=== PATIENT | male | born 1980 | race Caucasian/White ===

== ENCOUNTER 2020-11-23 15:43 | Emergency (ER) | payer SELFPAY ==
[2020-11-23] VITALS (7 sets, daily range): BP systolic 160–178; BP diastolic 105–122; PULSE 67–109; RESP 14–19; TEMP 36.7; O2SAT 96–99; BMI 34.8
--- NOTE | 2020-11-23 16:46 | PC.NURSE ---
States he was feeling worse. Shooting pains across chest and into jaw
--- NOTE | 2020-11-23 17:43 | ECG_ITS ---
[facility] Test Date: 2020-11-23 Pat Name: Jim Harris Department: Room: Gender: Male Scale Clerk: : 1980 Requested By: Vern Valverde Order Number: [id number] Caryl MD: Shikha Fletcher M.D. Measurements Intervals [place] Rate: 101 P: 69 GA: 176 QRS: -72 QRSD: 103 T: 30 QT: 332 QTc: 430 Interpretive Statements SINUS TACHYCARDIA POSSIBLE RIGHT ATRIAL ENLARGEMENT [0.25mV P WAVE] POSSIBLE LEFT ATRIAL ENLARGEMENT [-0.1mV P WAVE IN V1/V2] INCOMPLETE RIGHT BUNDLE BRANCH BLOCK [90+ ms QRS DURATION, TERMINAL R IN V1/V2, 40+ ms S IN I/aVL/V4/V5/V6] LEFT ANTERIOR FASCICULAR BLOCK [QRS AXIS <= -45, QR IN I, RS IN II] POSSIBLE LEFT VENTRICULAR HYPERTROPHY [VOLTAGE CRITERIA PLUS LAE OR QRS WIDENING] No previous ECG available for comparison Electronically Signed On 11-23-2020 22:46:25 CDT by Shikha Fletcher M.D. [id number]
--- NOTE | 2020-11-23 17:43 | XRR_ITS ---
PROCEDURE INFORMATION: Exam: XR Chest Exam date and time: 11/23/2020 5:43 PM Age: 40 years old Clinical indication: Pain; Shortness of breath; Chest pressure; Patient HX: HX of copd; Additional info: Chest pain TECHNIQUE: Imaging protocol: XR of the chest. Views: 1 view. COMPARISON: No relevant prior studies available. FINDINGS: Lungs: Mild diffuse increase in vascularity throughout the lungs. Negative for focal airspace consolidation or lesion. Pleural spaces: Unremarkable. No pleural effusion. No pneumothorax. Heart/Mediastinum: Unremarkable. No cardiomegaly. Bones/joints: Unremarkable. XR/XR chest 1V portable [id number] IMPRESSION: 1. No focal lung disease. 2. Mildly prominent vasculature of uncertain significance.
--- NOTE | 2020-11-23 17:49 | ED_ITS ---
Documented by User: Vern Villalpando DO 11/24/20 16:45 HPI - Chest Pain General: Chief Complaint: Chest Pain Stated Complaint: Chest Pain/SOB Time Seen by Provider: 11/23/20 17:32 History of Present Illness: HPI narrative: 40-year-old male presents to the emergency room with complaint of chest discomfort. It was radiating up into his jaw a little earlier today he normally is on blood pressure medicines he misses his morning drinks several energy drinks. Before coming to the ER he went home and took his medicines that did seem to help some. Patient has a history of diabetes he is not previously had an angiogram or stress test that he can recall. He is feeling somewhat better now chest pain is mostly resolved. MD complaint: chest pain and chest heaviness Onset (ago): hour(s) Timing of current episode: episodic Onset: during rest Pain location: substernal Pain radiation: none Severity: mild Relieving factors: nothing Exacerbating factors: nothing Associated symptoms: Deny abdominal pain, diaphoresis, dyspnea, fever(s), leg edema, nausea, palpitations, sense of impending doom, syncope or vomiting Treatment prior to arrival: none Review of Systems Const: Denies: fever(s) or diaphoresis ENMT: Denies: throat pain, ear or mastoid pain, nasal discharge or nasal congestion Card: Denies: palpitations or syncope Resp: Denies: dyspnea GI: Denies: abdominal pain, nausea or vomiting : Denies: flank pain, dysuria, urinary frequency or urinary urgency Skin/Breast: Denies: rash or pruritus Physical Exam Const: COMMON NORMALS: no acute distress GENERAL APPEARANCE: cooperative and comfortable ORIENTATION/CONSCIOUSNESS: Yes awake, Yes oriented to person, Yes oriented to place and Yes oriented to time HENMT: COMMON NORMALS: normocephalic, atraumatic, hearing grossly normal bilaterally and external ears normal HEAD & SCALP: normocephalic and atraumatic EXTERNAL EAR: Yes external ears normal Neck/C-Spine: COMMON NORMALS: no JVD Resp: COMMON NORMALS: normal respiratory effort, No retractions, No use of accessory muscles and clear to auscultation bilaterally AUSCULTATION: clear to auscultation bilaterally Cardio: COMMON NORMALS: no JVD, regular rate, regular rhythm and No murmurs present (Cardio) RATE: regular rate RHYTHM: regular rhythm GI: COMMON NORMALS: Soft to palpation and No hepatosplenomegaly present AUSCULTATION: Yes normoactive bowel sounds PALPATION: Yes Soft to palpation, No Tenderness to palpation present (GI), No Guarding due to palpation present (GI) and Yes No hepatosplenomegaly present Extremity: COMMON NORMALS: normal to inspection, capillary refill normal, no clubbing, cyanosis or edema, no calf tenderness and no pedal edema Neuro: SENSORIUM/ORIENTATION: Yes oriented to person, Yes oriented to place and Yes oriented to time Skin: COMMON NORMALS: no rashes or lesions noted GENERAL SKIN EXAM: no rashes or lesions noted Course Vital Signs: Vital signs: Vital Signs Temperature 98.0 F 11/23/20 21: Pulse Rate 70 11/23/20 21: Respiratory Rate 19 H 11/23/20 21: Blood Pressure 162/106 11/23/20 21: Pulse Oximetry 98 11/23/20 21:21 MDM - Chest Pain MDM Narrative: Medical decision making narrative: Care turned over to Dr. Rosenthal at change of shift see his note for final diagnosis and disposition. Lab Data: Labs: Lab Results 11/23/20 11/23/20 11/23/20 Range/Units 18:28 18:31 18:31 WBC 11.4 H (4.0-10.0) 10^3/ uL RBC 5.15 (4.1-5.3) 10^6/u L Hgb 15.7 (11.7-16.6) g/dL Hct 46.4 (42.0-52.0) % MCV 90.1 (80-94) fL MCH 30.5 (28.0-34.0) pg MCHC 33.8 (30.0-36.0) g/dL RDW 13.5 (12.1-15.1) % Plt Count 262 (130-400) 10^3/c mm MPV 9.9 (7.4-10.4) fL Neut % (Auto) 57.8 % Lymph % (Auto) 29.9 % [place] % (Auto) 9.0 % Eos % (Auto) 2.0 % Baso % (Auto) 0.9 % Neut # (Auto) 6.60 (1.8-7.7) 10^3/u L Lymph # (Auto) 3.4 (0.8-4.8) 10^3/u L [place] # (Auto) 1.0 H (0.2-0.9) 10^3/u L Eos # (Auto) 0.2 (0.0-0.8) 10^3/u L Baso # (Auto) 0.1 (0.0-0.1) 10^3/u L Nucleated RBC % (a uto) 0 % Nucleated RBCs # 0.0 /100WBC Sodium Cancelled Potassium Cancelled Chloride Cancelled Carbon Dioxide Cancelled Anion Gap Cancelled BUN Cancelled Creatinine Cancelled GFR Calculation Cancelled Glucose Cancelled POC Glucose 127 H (70-110) mg/dL Calculated Osmolal ity Cancelled Calcium Cancelled Total Bilirubin Cancelled AST Cancelled ALT Cancelled Alkaline Phosphata se Cancelled Troponin T Baselin e Total Protein Cancelled Albumin Cancelled Globulin Cancelled 11/23/20 11/23/20 11/23/20 Range/Units 18:31 19:33 19:33 WBC (4.0-10.0) 10^3/ uL RBC (4.1-5.3) 10^6/u L Hgb (11.7-16.6) g/dL Hct (42.0-52.0) % MCV (80-94) fL MCH (28.0-34.0) pg MCHC (30.0-36.0) g/dL RDW (12.1-15.1) % Plt Count (130-400) 10^3/c mm MPV (7.4-10.4) fL Neut % (Auto) % Lymph % (Auto) % [place] % (Auto) % Eos % (Auto) % Baso % (Auto) % Neut # (Auto) (1.8-7.7) 10^3/u L Lymph # (Auto) (0.8-4.8) 10^3/u L [place] # (Auto) (0.2-0.9) 10^3/u L Eos # (Auto) (0.0-0.8) 10^3/u L Baso # (Auto) (0.0-0.1) 10^3/u L Nucleated RBC % (a uto) % Nucleated RBCs # /100WBC Sodium Cancelled Potassium Cancelled Chloride Cancelled Carbon Dioxide Cancelled Anion Gap Cancelled BUN Cancelled Creatinine Cancelled GFR Calculation Cancelled Glucose Cancelled POC Glucose (70-110) mg/dL Calculated Osmolal ity Cancelled Calcium Cancelled Total Bilirubin Cancelled AST Cancelled ALT Cancelled Alkaline Phosphata se Cancelled Troponin T Baselin e Cancelled Cancelled Total Protein Cancelled Albumin Cancelled Globulin Cancelled 11/23/20 11/23/20 Range/Units 20:11 20:11 WBC (4.0-10.0) 10^3/ uL RBC (4.1-5.3) 10^6/u L Hgb (11.7-16.6) g/dL Hct (42.0-52.0) % MCV (80-94) fL MCH (28.0-34.0) pg MCHC (30.0-36.0) g/dL RDW (12.1-15.1) % Plt Count (130-400) 10^3/c mm MPV (7.4-10.4) fL Neut % (Auto) % Lymph % (Auto) % [place] % (Auto) % Eos % (Auto) % Baso % (Auto) % Neut # (Auto) (1.8-7.7) 10^3/u L Lymph # (Auto) (0.8-4.8) 10^3/u L [place] # (Auto) (0.2-0.9) 10^3/u L Eos # (Auto) (0.0-0.8) 10^3/u L Baso # (Auto) (0.0-0.1) 10^3/u L Nucleated RBC % (a uto) % Nucleated RBCs # /100WBC Sodium 138 Potassium 4.1 Chloride 101 Carbon Dioxide 25 Anion Gap 16.1 BUN 9 Creatinine 0.7 GFR Calculation 124.9 Glucose 102 POC Glucose (70-110) mg/dL Calculated Osmolal ity 285 Calcium 9.3 Total Bilirubin 0.3 AST 19 ALT 29 Alkaline Phosphata se 57 Troponin T Baselin e 22 H Total Protein 7.1 Albumin 4.6 Globulin 2.5 Discharge Plan Discharge Patient Disposition: Home Clinical Impression: Atypical chest pain, Hypertension, Noncompliance with medication regimen, Current smoker Condition: Stable Prescriptions: No Action metformin 500 mg tablet 500 mg PO BID RF: 0 lisinopril 5 mg tablet 5 mg PO DAILY RF: 0 lovastatin 20 mg tablet 20 mg PO DAILY RF: 0 Discharge Orders: Discharge ED (Routine); Ordered 11/23/20 Ordered By: Cooper Rosenthal Referrals: Iain Herrera NP [Primary Care Provider] - Discharge Diet: Advance as tolerated Discharge Activity: Resume usual activity Patient Instructions: Opioid Safety Activity Restrictions/Additional Instructions: Continue all home medications for blood pressure. Maintain compliance with your prescriptions. Avoid smoking avoid excess caffeine. Follow-up with primary care physician in 2 to 3 days. Return to the emergency department symptoms fail to improve or worsen. Coding Level of Care Code ED Letter Sorting Machine Operator for Chg Fwd Exam Comprehensive Documented by User: Cooper Rosenthal MD 11/23/20 21:06 HPI - Chest Pain General: Chief Complaint: Chest Pain Stated Complaint: Chest Pain/SOB Time Seen by Provider: 11/23/20 17:32 Course Reevaluation(s): Reevaluation #1: Negative evaluation in the emergency department for any acute findings. Patient does not want to wait on a 2-hour troponin. Patient states he is pain-free and believes it is related to him not taking his blood pressure medicines regularly. Blood pressure is improved down to 162/106. Sinus rhythm heart rate of 79. Patient states he has plenty of prescription medications at home. We did discuss liquid options. Patient will be discharged home per his request. Patient is to continue all home medications patient should avoid smoking or drinking with any significant mild caffeine. Patient is to follow-up primary care physician in 2 to 3 days. Patient is discharged per his request with pain Time: 21:04 Vital Signs: Vital signs: Vital Signs Temperature 98.0 F 11/23/20 21:21 Pulse Rate 70 11/23/20 21:21 Respiratory Rate 19 H 11/23/20 21:21 Blood Pressure 162/106 11/23/20 21:21 Pulse Oximetry 98 11/23/20 21:21 MDM - Chest Pain MDM Narrative: Medical decision making narrative: Negative evaluation in the emergency department for any acute findings. Patient does not want to wait on a 2-hour troponin. Patient states he is pain-free and believes it is related to him not taking his blood pressure medicines regularly. Blood pressure is improved down to 162/106. Sinus rhythm heart rate of 79. Patient states he has plenty of prescription medications at home. We did discuss liquid options. Patient will be discharged home per his request. Patient is to continue all home medications patient should avoid smoking or drinking with any significant mild caffeine. Patient is to follow-up primary care physician in 2 to 3 days. Patient is discharged per his request with pain Lab Data: Labs: Lab Results 11/23/20 11/23/20 11/23/20 Range/Units 18:28 18:31 18:31 WBC 11.4 H (4.0-10.0) 10^3/ uL RBC 5.15 (4.1-5.3) 10^6/u L Hgb 15.7 (11.7-16.6) g/dL Hct 46.4 (42.0-52.0) % MCV 90.1 (80-94) fL MCH 30.5 (28.0-34.0) pg MCHC 33.8 (30.0-36.0) g/dL RDW 13.5 (12.1-15.1) % Plt Count 262 (130-400) 10^3/c mm MPV 9.9 (7.4-10.4) fL Neut % (Auto) 57.8 % Lymph % (Auto) 29.9 % [place] % (Auto) 9.0 % Eos % (Auto) 2.0 % Baso % (Auto) 0.9 % Neut # (Auto) 6.60 (1.8-7.7) 10^3/u L Lymph # (Auto) 3.4 (0.8-4.8) 10^3/u L [place] # (Auto) 1.0 H (0.2-0.9) 10^3/u L Eos # (Auto) 0.2 (0.0-0.8) 10^3/u L Baso # (Auto) 0.1 (0.0-0.1) 10^3/u L Nucleated RBC % (a uto) 0 % Nucleated RBCs # 0.0 /100WBC Sodium Cancelled Potassium Cancelled Chloride Cancelled Carbon Dioxide Cancelled Anion Gap Cancelled BUN Cancelled Creatinine Cancelled GFR Calculation Cancelled Glucose Cancelled POC Glucose 127 H (70-110) mg/dL Calculated Osmolal ity Cancelled Calcium Cancelled Total Bilirubin Cancelled AST Cancelled ALT Cancelled Alkaline Phosphata se Cancelled Troponin T Baselin e Total Protein Cancelled Albumin Cancelled Globulin Cancelled 11/23/20 11/23/20 11/23/20 Range/Units 18:31 19:33 19:33 WBC (4.0-10.0) 10^3/ uL RBC (4.1-5.3) 10^6/u L Hgb (11.7-16.6) g/dL Hct (42.0-52.0) % MCV (80-94) fL MCH (28.0-34.0) pg MCHC (30.0-36.0) g/dL RDW (12.1-15.1) % Plt Count (130-400) 10^3/c mm MPV (7.4-10.4) fL Neut % (Auto) % Lymph % (Auto) % [place] % (Auto) % Eos % (Auto) % Baso % (Auto) % Neut # (Auto) (1.8-7.7) 10^3/u L Lymph # (Auto) (0.8-4.8) 10^3/u L [place] # (Auto) (0.2-0.9) 10^3/u L Eos # (Auto) (0.0-0.8) 10^3/u L Baso # (Auto) (0.0-0.1) 10^3/u L Nucleated RBC % (a uto) % Nucleated RBCs # /100WBC Sodium Cancelled Potassium Cancelled Chloride Cancelled Carbon Dioxide Cancelled Anion Gap Cancelled BUN Cancelled Creatinine Cancelled GFR Calculation Cancelled Glucose Cancelled POC Glucose (70-110) mg/dL Calculated Osmolal ity Cancelled Calcium Cancelled Total Bilirubin Cancelled AST Cancelled ALT Cancelled Alkaline Phosphata se Cancelled Troponin T Baselin e Cancelled Cancelled Total Protein Cancelled Albumin Cancelled Globulin Cancelled 11/23/20 11/23/20 Range/Units 20:11 20:11 WBC (4.0-10.0) 10^3/ uL RBC (4.1-5.3) 10^6/u L Hgb (11.7-16.6) g/dL Hct (42.0-52.0) % MCV (80-94) fL MCH (28.0-34.0) pg MCHC (30.0-36.0) g/dL RDW (12.1-15.1) % Plt Count (130-400) 10^3/c mm MPV (7.4-10.4) fL Neut % (Auto) % Lymph % (Auto) % [place] % (Auto) % Eos % (Auto) % Baso % (Auto) % Neut # (Auto) (1.8-7.7) 10^3/u L Lymph # (Auto) (0.8-4.8) 10^3/u L [place] # (Auto) (0.2-0.9) 10^3/u L Eos # (Auto) (0.0-0.8) 10^3/u L Baso # (Auto) (0.0-0.1) 10^3/u L Nucleated RBC % (a uto) % Nucleated RBCs # /100WBC Sodium 138 Potassium 4.1 Chloride 101 Carbon Dioxide 25 Anion Gap 16.1 BUN 9 Creatinine 0.7 GFR Calculation 124.9 Glucose 102 POC Glucose (70-110) mg/dL Calculated Osmolal ity 285 Calcium 9.3 Total Bilirubin 0.3 AST 19 ALT 29 Alkaline Phosphata se 57 Troponin T Baselin e 22 H Total Protein 7.1 Albumin 4.6 Globulin 2.5 Imaging Data^: CXR: Attestation: I personally reviewed and interpreted this imaging study as follows: Radiologist's impression: IMPRESSION: 1. No focal lung disease. 2. Mildly prominent vasculature of uncertain significance. Discharge Plan Discharge Patient Disposition: Home Clinical Impression: Atypical chest pain, Hypertension, Noncompliance with medication regimen, Current smoker Condition: Stable Prescriptions: No Action metformin 500 mg tablet 500 mg PO BID RF: 0 lisinopril 5 mg tablet 5 mg PO DAILY RF: 0 lovastatin 20 mg tablet 20 mg PO DAILY RF: 0 Discharge Orders: Discharge ED (Routine); Ordered 11/23/20 Ordered By: Cooper Rosenthal Referrals: Iain Herrera NP [Primary Care Provider] - Discharge Diet: Advance as tolerated Discharge Activity: Resume usual activity Patient Instructions: Opioid Safety Activity Restrictions/Additional Instructions: Continue all home medications for blood pressure. Maintain compliance with your prescriptions. Avoid smoking avoid excess caffeine. Follow-up with primary care physician in 2 to 3 days. Return to the emergency department symptoms fail to improve or worsen. Coding Level of Care Code ED Letter Sorting Machine Operator for Daryl Fwd Exam Comprehensive
[2020-11-23 18:32] LABS: Glucose Point of Care 127 mg/dL (70-110)
[2020-11-23 18:50] LABS: Basophils # 0.1 10^3/uL (0.0-0.1); Basophils % 0.9 %; Eosinophils # 0.2 10^3/uL (0.0-0.8); Hematocrit 46.4 % (42.0-52.0); Hemoglobin 15.7 g/dL (11.7-16.6); Lymphocytes # 3.4 10^3/uL (0.8-4.8); Lymphocytes % 29.9 %; Mean Corpuscular HGB Conc 33.8 g/dL (30.0-36.0); Mean Corpuscular Hemoglobin 30.5 pg (28.0-34.0); Mean Corpuscular Volume 90.1 fL (80-94); Mean Platelet Volume 9.9 fL (7.4-10.4); Neutrophils % 57.8 %; Nucleated Red Blood Cells % 0 %; Platelet Count 262 10^3/cmm (130-400); Red Blood Count 5.15 10^6/uL (4.1-5.3); Red Cell Distribution Width 13.5 % (12.1-15.1); White Blood Count 11.4 10^3/uL (4.0-10.0)
[2020-11-23 20:41] LABS: Troponin(5th) Baseline 22 ng/L (0-15)
[2020-11-23 20:43] LABS: Alanine Aminotransferase 29 U/L (0-41); Albumin Level 4.6 g/dL (3.5-5.2); Alkaline Phosphatase 57 IU/L (40-130); Anion Gap 16.1 (5-19); Aspartate Amino Transferase 19 U/L (0-40); Blood Urea Nitrogen 9 mg/dL (6-20); Calcium 9.3 mg/dL (8.5-10.5); Carbon Dioxide 25 mmol/L (22-29); Chloride 101 mmol/L (98-107); Globulin 2.5 g/dL (1.3-4.6); Glomerular Filtration Rate 124.9 mL/min (90-130); Glucose 102 mg/dL (65-115); Osmolality Calculated 285 mOsm/kg (285-295); Potassium 4.1 mmol/L (3.5-5.1); Sodium 138 mmol/L (136-145); Total Bilirubin 0.3 mg/dL (0.15-1.2); Total Protein 7.1 g/dL (6.6-8.7)
== END 2020-11-23 21:24 | disposition home or self-care (01) ==
PROVIDERS: Family Medicine; Emergency Provider Emergency Medicine; PCP Nurse Practitioner Family
DX: R07.89 Other chest pain (principal); I10 Essential (primary) hypertension; Z91.14 Patient's other noncompliance with medication regimen; F17.210 Nicotine dependence, cigarettes, uncomplicated; Z79.84 Long term (current) use of oral hypoglycemic drugs
CPT/HCPCS: 36415; 36416; 71045; 80053; 82962; 84484; 85025; 93005; 99284

== ENCOUNTER → 2021-05-24 08:48 | Outpatient (BNVA) | payer SELFPAY | PROVIDERS: PCP Nurse Practitioner Family; Visit Provider Podiatrist Foot & Ankle Surgery | DX: M19.071 Primary osteoarthritis, right ankle and foot (principal) | CPT/HCPCS: 73610 ==

== ENCOUNTER 2022-07-10 10:54 | Inpatient (IN) | payer SELFPAY ==
[2022-07-10] VITALS (30 sets, daily range): BP systolic 124–171; BP diastolic 84–116; PULSE 72–108; RESP 5–26; TEMP 36.7; O2SAT 90–100; BMI 42.7
--- NOTE | 2022-07-10 11:06 | ECG_ITS ---
[facility] Test Date: 2022-07-10 Pat Name: Jim Harris Department: Room: Gender: Male [employer]: : 1980 Requested By: Shubham Salazar Order Number: [id number] Caryl MD: Goran Ace M.D. Measurements Intervals [place] Rate: 104 P: 55 [place]: 172 QRS: -75 QRSD: 102 T: 26 QT: 314 QTc: 413 Interpretive Statements SINUS TACHYCARDIA LEFT ATRIAL ENLARGEMENT [-0.15mV P-WAVE IN V1/V2] POSSIBLE RIGHT VENTRICULAR CONDUCTION DELAY [RSR (QR) IN V1/V2] ANTEROLATERAL MYOCARDIAL INFARCTION , OF INDETERMINATE AGE [40+ ms Q WAVE IN I/aVL/V3-V6] Compared to ECG 11/23/2020 15:59:24 Myocardial infarct finding now present Incomplete right bundle-branch block no longer present Left anterior fascicular block no longer present Electronically Signed On 07-10-2022 21:42:29 FERRY ENGINEER by Goran Ace M.D. [id number]
--- NOTE | 2022-07-10 11:12 | ED_ITS ---
HPI - Chest Pain General: Chief Complaint: Chest Pain Stated Complaint: Chest Pain and neck pains, Dizziness, N/V Time Seen by Provider: 07/10/22 11:12 History of Present Illness: Mr. Harris is a 42-year-old gentleman with significant history of obesity, tobaccoism, hypertension, hyperlipidemia, positive family history for early cardiac disease presenting to the emergency department due to chest pain. He reports onset of symptoms few days ago initially with mild symptoms however these became more constant over the past few days. Describes moderate intensity substernal heaviness and occasional tingling cramping to left arm. He notes that he episode of vomiting and has had nausea. Denies other infectious symptoms. Overall course of symptoms is worsened. Denies frequent similar episodes in the past. No other specific changes in health, exacerbating, or alleviating factors identified. Pertinent past history: other Onset (ago): day(s) Timing of current episode: constant Prior episodes: No Onset: during rest Pain location: substernal Pain radiation: left arm Severity: moderate Quality: aching and heaviness Relieving factors: nothing Exacerbating factors: nothing Associated symptoms: Reports nausea and vomiting Review of Systems General: Reports: 10 or more systems reviewed and unremarkable except in HPI and below GI: Reports: nausea and vomiting PFSH ED PFSH: Medical History Diabetes Hypertension Social History Smoking and tobacco status: current every day smoker Physical Exam Const: COMMON NORMALS: alert GENERAL APPEARANCE: cooperative and well developed HENMT: COMMON NORMALS: normocephalic and atraumatic HEAD & SCALP: normocephalic and atraumatic Eye: COMMON NORMALS: conjunctivae normal CONJUNCTIVA: Yes conjunctivae normal SCLERA: sclerae normal Neck/C-Spine: COMMON NORMALS: supple GENERAL: Yes trachea midline Resp: COMMON NORMALS: normal respiratory effort and clear to auscultation bilaterally EFFORT & INSPECTION: Yes able to speak in complete sentences AUSCULTATION: clear to auscultation bilaterally Cardio: COMMON NORMALS: regular rhythm RATE: tachycardic RHYTHM: regular rhythm GI: COMMON NORMALS: Soft to palpation PALPATION: Yes Soft to palpation and No Tenderness to palpation present (GI) Extremity: GENERAL: Yes normal exam except as noted and No edema Neuro: COMMON NORMALS: moves all extremities SENSORIUM/ORIENTATION: Yes alert and No Orientation impaired Psych: COMMON NORMALS: mental status grossly normal and Normal thought process present THOUGHT PROCESS: Normal thought process present Course Vital Signs: Vital signs: Vital Signs Temperature 98.1 F 07/10/22 11:02 Pulse Rate 80 07/11/22 10:18 Respiratory Rate 18 07/11/22 10:18 Blood Pressure 111/65 07/11/22 10:18 Pulse Oximetry 96 07/11/22 10:18 Oxygen Delivery Me thod 07/11/22 08:00 MDM - Chest Pain Medical Decision Making 42-year-old gentleman presenting to the emergency department for chest pain. Patient has had a number of cardiac risk factors and pain is typical in nature with worsening and constant symptoms. Chest pain is not reproducible with physical exam palpation. Exam otherwise as above. Patient is nontoxic EKG demonstrates sinus tachycardia with left axis deviation, abnormal ST segments, no STEMI. The ST segments are concerning especially in the inferior leads however I do not appreciate continuous lead elevation meeting STEMI criteria and there are no reciprocal changes. Labs notable for no leukocytosis, mild hemoconcentration compared to prior. Metabolic panel with some evidence of intravascular dehydration. Initial troponin is elevated at 213 with 2-hour delta troponin pending. Rapid viral testing is negative. Chest x-ray with no lobar consolidation or pneumothorax. Repeat EKG is similar. After the first troponin resulted given the patient's concerning clinical history and symptoms I did discuss the case with cardiology who will come to evaluate the patient. During ED course patient treated with aspirin, small fluid bolus, Zofran as well as heparin for NSTEMI. Cardiology agrees after assessment patient is quite concerning however does agree that EKG does not meet STEMI criteria. Plan to go to [facility] Training [facility] regardless given high risk. Most likely etiology of patient symptoms is NSTEMI. The results of ED evaluation were discussed with the patient including plan for admission due to requirement for level of care not available if discharged to prevent significant worsening/deterioration. Patient agreeable with plan. Discussed with hospitalist service who was agreeable to admit patient. Medical Records I reviewed the patient's medical records. Lab Data I reviewed the patient's lab results. 07/10/22 11:30 07/10/22 11:30 Radiology Impressions Chest X-Ray 07/10/22 11:20 IMPRESSION: No acute findings. Laboratory Results WBC 9.3 10^3/uL (4.0-10.0) 07/10/22 11:30 RBC 5.63 10^6/uL (4.1-5.3) H 07/10/22 11:30 Hgb 16.9 g/dL (11.7-16.6) H 07/10/22 11:30 Hct 49.2 % (42.0-52.0) 07/10/22 11:30 MCV 87.4 fl (80-94) 07/10/22 11:30 MCH 30.0 pg (28.0-34.0) 07/10/22 11:30 MCHC 34.3 g/dL (30.0-36.0) 07/10/22 11:30 RDW 12.7 % (12.1-15.1) 07/10/22 11:30 Plt Count 288 10^3/cmm (130-400) 07/10/22 11:30 MPV 9.9 fL (7.4-10.4) 07/10/22 11:30 Neut % (Auto) 60.7 % 07/10/22 11:30 Lymph % (Auto) 27.6 % 07/10/22 11:30 Turner % (Auto) 7.8 % 07/10/22 11:30 Eos % (Auto) 3.0 % 07/10/22 11:30 Baso % (Auto) 0.6 % 07/10/22 11:30 Neut # (Auto) 5.66 10^3/uL (1.8-7.7) 07/10/22 11:30 Lymph # (Auto) 2.6 10^3/uL (0.8-4.8) 07/10/22 11:30 Turner # (Auto) 0.7 10^3/uL (0.2-0.9) 07/10/22 11:30 Eos # (Auto) 0.3 10^3/uL (0.0-0.8) 07/10/22 11:30 Baso # (Auto) 0.1 10^3/uL (0.0-0.1) 07/10/22 11:30 Nucleated RBC % (auto) 0 % 07/10/22 11:30 Nucleated RBCs # 0.0 /100WBC 07/10/22 11:30 PT 12.40 SECONDS (12.1-14.9) 07/10/22 11:30 INR 0.89 (0.8-1.2) 07/10/22 11:30 APTT 33.4 SECONDS (23.9-36.7) 07/10/22 11:30 D-Dimer 0.46 ug/mIFEU (0-0.59) 07/10/22 11:30 Sodium 131 mmol/L (136-145) L 07/10/22 11:30 Potassium 4.3 mmol/L (3.5-5.1) 07/10/22 11:30 Chloride 96 mmol/L (98-107) L 07/10/22 11:30 Carbon Dioxide 21 mmol/L (22-29) L 07/10/22 11:30 Anion Gap 18.3 (5-19) 07/10/22 11:30 BUN 7 mg/dL (6-20) 07/10/22 11:30 Creatinine 0.6 mg/dL (0.7-1.2) L 07/10/22 11:30 GFR Calculation 147.8 mL/min (90-130) H 07/10/22 11:30 Glucose 177 mg/dL (65-115) H 07/10/22 11:30 Calculated Osmolality 274 mOsm/kg (285-295) L 07/10/22 11:30 Calcium 9.3 mg/dL (8.5-10.5) 07/10/22 11:30 Total Bilirubin 0.3 mg/dL (0.15-1.2) 07/10/22 11:30 AST 37 U/L (0-40) 07/10/22 11:30 ALT 36 U/L (0-41) 07/10/22 11:30 Alkaline Phosphatase 61 U/L (40-130) 07/10/22 11:30 Troponin T Baseline 213 ng/L (0-15) H* 07/10/22 11:30 NT-Pro-B Natriuret Pep 128 pg/mL (0-125) H 07/10/22 11:30 Total Protein 7.7 g/dL (6.6-8.7) 07/10/22 11:30 Albumin 4.4 g/dL (3.5-5.2) 07/10/22 11:30 Globulin 3.3 g/dL (1.3-4.6) 07/10/22 11:30 Lipase 22 U/L (13-60) 07/10/22 11:30 Influenza Type A Ag negative (Negative) 07/10/22 11:49 Influenza Type B Ag negative (Negative) 07/10/22 11:49 SARS-CoV-2 Ag (Rapid) negative (Negative) 07/10/22 11:49 Critical Care Time Critical Care Time: Critical Care Time: Yes Total Critical Care Time: 35 Attestation: Due to a high probability of clinically significant, possibly life threatening deterioration, the patient required my highest level of attention and preparedness to intervene emergently and I personally spent this critical care time directly and personally managing the patient. This critical care time included obtaining a history; examining the patient; pulse oximetry; ordering and review of laboratory and imaging studies; arranging urgent treatment with development of a management plan; evaluation of patient's response to treatment; frequent reassessment; and, discussions with other providers as applicable. It was exclusive of separately billable procedures. Primary system involved is cardiovascular. Discharge Plan Discharge Patient Disposition: Admitted As Inpatient Admit Provider: Goran Ace Clinical Impression: Acute non-ST elevation myocardial infarction (NSTEMI) Condition: Stable Discharge Diet: Cardiac Discharge Activity: Increase activity as tolerated Coding Level of Care Code ED Genetic Counsellor for Daryl Fwd Exam Comprehensive
--- NOTE | 2022-07-10 11:20 | XRR_ITS ---
PROCEDURE INFORMATION: Exam: XR Chest Exam date and time: 07/10/2022 12:04 PM Age: 42 years old Clinical indication: Pain; Chest pressure; Additional info: Cp TECHNIQUE: Imaging protocol: Radiologic exam of the chest. Views: 1 view. COMPARISON: CR XR chest 1V portable [id number] 11/23/2020 5:44 PM FINDINGS: Lungs: Unremarkable. No consolidation. Pleural spaces: Unremarkable. No pleural effusion. No pneumothorax. Heart/Mediastinum: Unremarkable. No cardiomegaly. Bones/joints: Unremarkable. XR/XR chest 1V portable [id number] IMPRESSION: No acute findings.
[2022-07-10] MEDS: sodium chloride 0.9% 500 ML 999 ML IV (11:33)
[2022-07-10] MEDS: aspirin 81 mg Chew Tablet 324 MG PO (11:33)
[2022-07-10 11:50] LABS: Basophils # 0.1 10^3/uL (0.0-0.1); Basophils % 0.6 %; Eosinophils # 0.3 10^3/uL (0.0-0.8); Hematocrit 49.2 % (42.0-52.0); Hemoglobin 16.9 g/dL (11.7-16.6); Lymphocytes # 2.6 10^3/uL (0.8-4.8); Lymphocytes % 27.6 %; Mean Corpuscular HGB Conc 34.3 g/dL (30.0-36.0); Mean Corpuscular Volume 87.4 fl (80-94); Mean Platelet Volume 9.9 fL (7.4-10.4); Monocytes # 0.7 10^3/uL (0.2-0.9); Monocytes % 7.8 %; Neutrophils # 5.66 10^3/uL (1.8-7.7); Neutrophils % 60.7 %; Nucleated Red Blood Cells % 0 %; Platelet Count 288 10^3/cmm (130-400); Red Blood Count 5.63 10^6/uL (4.1-5.3); Red Cell Distribution Width 12.7 % (12.1-15.1); White Blood Count 9.3 10^3/uL (4.0-10.0)
[2022-07-10 12:18] LABS: D Dimer 0.46 ug/mIFEU (0-0.59)
[2022-07-10 12:28] LABS: Troponin(5th) Baseline 213 ng/L (0-15)
[2022-07-10 12:38] LABS: Alanine Aminotransferase 36 U/L (0-41); Albumin Level 4.4 g/dL (3.5-5.2); Alkaline Phosphatase 61 U/L (40-130); Anion Gap 18.3 (5-19); Aspartate Amino Transferase 37 U/L (0-40); Blood Urea Nitrogen 7 mg/dL (6-20); Calcium 9.3 mg/dL (8.5-10.5); Carbon Dioxide 21 mmol/L (22-29); Chloride 96 mmol/L (98-107); Globulin 3.3 g/dL (1.3-4.6); Glomerular Filtration Rate 147.8 mL/min (90-130); Glucose 177 mg/dL (65-115); Lipase 22 U/L (13-60); NT Pro B Type Natriuretic Pept 128 pg/mL (0-125); Osmolality Calculated 274 mOsm/kg (285-295); Potassium 4.3 mmol/L (3.5-5.1); Sodium 131 mmol/L (136-145); Total Bilirubin 0.3 mg/dL (0.15-1.2); Total Protein 7.7 g/dL (6.6-8.7)
[2022-07-10] MEDS: heparin 5,000 unit/mL INJ 1 mL IV (13:08)
[2022-07-10] MEDS: heparin drip 25,000 UNIT/500 ML PREMIX 38.1 UNIT IV (13:13)
--- NOTE | 2022-07-10 13:20 | ECG_ITS ---
[facility] Test Date: 2022-07-10 Pat Name: Jim Harris Department: Room: Gender: Male [employer]isque[employer] Worker: : 1980 Requested By: Shubham Salazar Order Number: [id number] Hutson MD: Goran Ace M.D. Measurements Intervals [place] Rate: 88 P: 52 IA: 209 QRS: -68 QRSD: 100 T: 16 QT: 340 QTc: 412 Interpretive Statements SINUS RHYTHM LEFT ATRIAL ENLARGEMENT [-0.15mV P-WAVE IN V1/V2] INCOMPLETE RIGHT BUNDLE BRANCH BLOCK [90+ ms QRS DURATION, TERMINAL R IN V1/V2, 40+ ms S IN I/aVL/V4/V5/V6] POSSIBLE LEFT VENTRICULAR HYPERTROPHY [VOLTAGE CRITERIA PLUS LAE OR QRS WIDENING] POSSIBLE ANTERIOR MYOCARDIAL INFARCTION , OF INDETERMINATE AGE [30 ms Q WAVE IN V3/V4, OR R < 0.2 mV IN V4] INFERIOR MYOCARDIAL INFARCTION , POSSIBLY ACUTE [40+ ms Q WAVE AND/OR ST/T ABNORMALITY IN II/aVF] ACUTE FL Compared to ECG 07/10/2022 11:06:06 Incomplete right bundle-branch block now present Sinus tachycardia no longer present Myocardial infarct finding still present Electronically Signed On 07-10-2022 21:43:24 PIPE FITTER GAS PIPE by Goran Ace M.D. [email or web address]
--- NOTE | 2022-07-10 13:24 | XACV_ITS ---
Exam Room: 2 Ht: 185 cm Wt: 136 kg BSA: 2.70 m2 Gender: Male : 1980 Any Known Allergies: Other Exam Priority: Routine Procedure(s): Procedure Description: Diagnostic procedure Procedure Description: PCI procedure Procedure Description: Left Heart Catheterization Procedure Description: Coronary IVUS Procedure Description: Drug Eluting Coronary Stent Procedure Description: PTCA Procedure Description: Miscellaneous Procedure Description: ACT Procedure Description: Coronary Angiography Diagnostic Cath Status: Urgent Diagnostic Findings * INDICATION: 42 year old male with past medical history of hypertension, diabetes who has presented with chest pain that started 2 days back. According to patient it was substernal and severe. It was on and off. Yesterday got worse and he had episode of nausea and vomiting. This morning again he had similar discomfort. His initial troponin is 213. EKG shows sinus rhythm with borderline ST elevations in the inferior leads. He has been started on non-STEMI protocol. Initial troponin is 213. His chest pain has improved significantly on medical therapy. Given EKG findings, we decided to activate Wick Tender and perform the procedure urgently.. * Left Main has no significant disease. * Left Anterior Descending has no significant disease. * Circumflex has no disease.Large sized OM 1 has proximal 60-70% stenosis. * Distal Right Coronary Artery: obstructive, Hazy 70% stenosis, JULIA: 1 flow. * Posterior Descending Right: total thrombotic occlusion, JULIA: 0 flow. * Coronary angiography shows right dominance. PCI Status: Urgent PCI Indication: NSTE - ACS Interventional Findings * Procedure detail: We engaged RCA with a 6 Georgian hockey-stick guide catheter. IV heparin was administered to maintain ACT above 250 S. 0.014 run-through guidewire was used to cross the stenosis and was put in distal vessel. We predilated PDA and distal RCA stenosis with 2.5 x 12 mm semicompliant balloon. PDA stenosis could not be completely crossed with the balloon. We switched to 2.0 x 12 mm semicompliant balloon and balloon angioplasty was performed. We then proceeded with placement of 2.5 x 15 mm resolute Demetrius drug-eluting stent in PDA. This was followed by placement of 3.0 x 18 mm resolute [place] drug-eluting stent in distal RCA. At this time we performed IVUS that showed excellent stent expansion and no residual stenosis. Guidewire and guide catheter were removed. Patient left the Wick Tender in a stable condition.. * Distal Right Coronary Artery: 70% stenosis treated with a AB TREK 2.50X12 RX BALLOON, AB MINI TREK 2.00X12 RX BALLOON, MDT R DEMETRIUS 2.5X15 LOR, and MDT R DEMETRIUS 3.0X18 LOR. 0% residual stenosis, JULIA: 3 flow. Conclusions 1. Severe distal RCA stenosis status post successful revascularization with LOR x1. Total thrombotic occlusion of PDA status post successful revascularization with LOR x1.. 2. Moderate to severe restenosis of OM1. Will need outpatient stress test to rule out ischemia. 3. Distal Right Coronary Artery was treated with a Balloon, Balloon, Drug Eluting Stent, and Drug Eluting Stent. Recommendations * Transfer back to [facility]. * Dual antiplatelet therapy with aspirin and Brilinta for at least 1 year. * Aggrastat drip for 4 hours. * Order echocardiogram. * Outpatient cardiology follow-up in 4 weeks. He will need outpatient stress test to assess ischemia in the OM territory. Interventional RX Recommendation: PCI w/o planned CABG Diagnostic RX Recommendation: PCI w/o planned CABG Anticoagulation: Heparin Pressures Phase:Rest AO : 147 / 108 ( 124 ) @ 2:27:00 PM 146 / 107 ( 123 ) @ 2:27:00 PM 123 / 98 ( 112 ) @ 2:37:00 PM 136 / 106 ( 122 ) @ 2:43:00 PM 143 / 97 ( 119 ) @ 2:53:00 PM 138 / 101 ( 117 ) @ 2:58:00 PM LV : 173 / -7 / 28 @ 2:27:00 PM 178 / -8 / 27 @ 2:27:00 PM Valves Phase:DefaultPhase AV : 31.0 @ 3:09:58 PM 31.0 @ 3:09:58 PM AV Mean Gradient: 16.0 @ 3:09:58 PM Clinical Evaluation EBL: 5mL-10mL Procedural Details Procedure Consent Obtained. Pre-Procedure Time Out. Identified patient by full name and date of as verbalized by the patient/guarantor. Does the consent match the physician's order: Yes. Accurate & Complete Informed Consent: Yes. Inpatient/Outpatient History & Physical on Chart: Yes. If H&P is completed, is and addenduem needed: Yes. Visualize and Verify Site with Patient/Guarantor: N/A. Relevant Radiology Images available: N/A. The risks, benefits, and alternatives of sedation and/or procedure were discussed by physician. The patient agrees to continue. Procedure started. [facility] Clinical Fraility Score: 3: Managing Well. Wick Tender Indications: ACS > 24 hours. Chest Pain Symptom Assessment: Typical Angina Symptoms. Cardiovascular Instability: No. Correct patient, site and procedure confirmed by cath team. Current diagnosis: NSTEMI. PERRLA. Strong, equal hand slider assembler bilaterally. Lungs clear x 5 lobes. IV Site on Arrival: 18 gauge in the left hand. IV Fluids: 0.9% NaCl at KVO. 0 mL infused prior to school laboratory technician. Pre Procedural Pulses: bilateral radial was 3+. Oxygen started at 2liters/min via nasal canula. right groin was prepped with chloroprep then draped in the usual sterile fashion. right radial was prepped with chloroprep then draped in the usual sterile fashion. Physician notified. Baseline sample Acquired. HR: 94 BPM. Patient's family placed in the school laboratory technician waiting room. Dr. Ace will update at completion of the case. Equipment: 6F - Radial. Cardiac Cath Pack. ACIST Manifold Kit Model BT 2000. Heparinized Saline (2 units/mL), 1000 mL bag. Physician arrived. Physician scrubbed in. Immediate Pre-Procedure Time Out. Correct Patient: Yes; Correct Procedure: Yes; Correct Site: Yes; Correct Patient Position: Yes; Correct Supplies: Yes; Dried Flammable Prep: Yes; Blood Products Available: N/A;. Lidocaine 1% infiltrated to the right radial. Arterial access obtained. A 5 macedonian TIG catheter in over the exchange j wire. Multiple views taken of left coronary artery. Current Diagnosis : NSTEMI. Catheter redirected to the RCA. Catheter removed over the exchange J wire. A 5 macedonian JR4 catheter in over the exchange J wire and advanced to the LV. EDP Sample taken: LV 173/-8,28; HR: 96 BPM; SpO2: 96%. Pullback taken: LV 178/-9,27; AO 147/108(124); Mean: 16mmHg, Peak to Peak: 31mmHg, SEP: 23sec/min; HR: 96 BPM; SpO2: 95%. Catheter redirected to the RCA. Multiple views taken of right coronary artery. 6 macedonian HS guide catheter was inserted over the wire. ACT drawn. Results 150 seconds. Therapeutic limits - pre-heparin administration 90-150 seconds and monitoring heparin during a vascular procedure >250 seconds. Runthrough guidewire was advanced through the guide catheter to lesion in the distal RCA. Inflation number : 1 A AB TREK 2.50X12 RX BALLOON was prepped and advanced across the Dist RCA , then inflated to 6 TREVA for 0:10 seconds. Inflation number: 2 The AB TREK 2.50X12 RX BALLOON was reinflated across the Dist RCA, to 12 TREVA for 0:20 seconds. Inflation number: 3 The AB TREK 2.50X12 RX BALLOON was reinflated across the Dist RCA, to 8 TREVA for 0:10 seconds. Balloon out. Inflation number : 4 A AB MINI TREK 2.00X12 RX BALLOON was prepped and advanced across the Dist RCA , then inflated to 10 TREVA for 0:18 seconds. Inflation number: 5 The AB MINI TREK 2.00X12 RX BALLOON was reinflated across the Dist RCA, to 12 TREVA for 0:11 seconds. Balloon out. Inflation Number : 6 A MDT R DEMETRIUS 2.5X15 LOR -Lot Number# [id number] was prepped and advanced across the Dist RCA. The stent was deployed at 3 TREVA for 0:18 seconds. Exp 2023-12-09. Stent balloon out over wire. Results checked. Inflation Number : 7 A MDT R DEMETRIUS 3.0X18 LOR -Lot Number# [id number] was prepped and advanced across the Dist RCA. The stent was deployed at 12 TREVA for 0:18 seconds. Exp 2024-12-02. Stent balloon out over wire. ACT drawn. Results 287 seconds. Therapeutic limits - pre-heparin administration 90-150 seconds and monitoring heparin during a vascular procedure >250 seconds. IVUS catheter in over the Runthrough guidewire to the distal RCA. Ringdown and recording of the distal RCA performed. IVUS catheter out over the Runthrough guidewire. Results checked. Wire out. Guide catheter out. Dr. Ace scrubbed out. A TR Band was successful obtaining hemostatsis at the Right Radial artery insertion site. TR band placed. Hemostasis obtained. Post Procedure: Pulses reassessed and unchanged. PERRLA. Strong, equal hand slider assembler bilaterally. No VTE prophylaxis required. Medication's Wasted: Nitro = 49.6 mg. Medication's Wasted: Other = Cardene 24.6 mg. Total IV fluids: 60 mL. PCI Indication: NSTE. Post-op diagnosis: Thrombotic occlusion of the PDA with severe occlusion of the distal RCA. PTCA/PCI of the Distal RCA. Complications: none. Estimated blood loss: 5mL-10mL. Responsiveness - Normal response to verbal stimuli; alert and oriented, PERRLA. Airway - Unaffected, no intervention required; spontaneous ventilation. Circulation: W/N/L, pulses unchanged. Nausea/Vomiting: No. Procedure completed. Patient transferred by wheelchair to 1st floor. Vital chart was stopped. Access Site Site: Right Radial artery Sheath Size: 6 Fr Hemostasis Method: TR Band Hemostasis Success: Successful Procedure Medications Start: 2:14 PM Stop: 2:14 PM Medication: Versed Amount: 1 mg Route: I.V. Start: 2:14 PM Stop: 2:14 PM Medication: Fentanyl Amount: 50 mcg Route: I.V. Start: 2:14 PM Stop: 2:14 PM Medication: Versed Amount: 1 mg Route: I.V. Start: 2:18 PM Stop: 2:18 PM Medication: Fentanyl Amount: 50 mcg Route: I.V. Start: 2:18 PM Stop: 2:18 PM Medication: Nitrogylcerin Amount: 200 mcg Route: I.A. Start: 2:21 PM Stop: 2:21 PM Medication: Versed Amount: 1 mg Route: I.V. Start: 2:21 PM Stop: 2:21 PM Medication: Heparin Amount: 2000 units Route: I.V. Start: 2:29 PM Stop: 2:29 PM Medication: Versed Amount: 1 mg Route: I.V. Start: 2:34 PM Stop: 2:34 PM Medication: Fentanyl Amount: 50 mcg Route: I.V. Start: 2:34 PM Stop: 2:34 PM Medication: Heparin Amount: 5000 units Route: I.V. Start: 2:41 PM Stop: 2:41 PM Medication: Nitrogylcerin Amount: 200 mcg Route: I.C. Start: 2:41 PM Stop: 2:41 PM Medication: Heparin Amount: 2000 units Route: I.V. Start: 2:44 PM Stop: 2:44 PM Medication: Cardene Amount: 400 mcg Route: I.C. Start: 2:44 PM Stop: 2:44 PM Medication: Versed Amount: 1 mg Route: I.V. Start: 2:47 PM Stop: 2:47 PM Medication: Aggrastat 12.5 mg/250 mL Amount: 70 ml Route: I.V. bolus Start: 2:47 PM Stop: 2:47 PM Medication: Aggrastat 12.5 mg/250 mL Amount: 25.2 ml/hr Route: I.V. drip Start: 2:47 PM Stop: 2:47 PM Medication: Heparin Amount: 2000 units Route: I.V. Start: 2:48 PM Stop: 2:48 PM Medication: Fentanyl Amount: 50 mcg Route: I.V. Start: 2:49 PM Stop: 2:49 PM Medication: Versed Amount: 1 mg Route: I.V. Start: 2:57 PM Stop: 2:57 PM Medication: Nitrogylcerin Amount: 200 mcg Route: I.C. Start: 3:01 PM Stop: 3:01 PM Medication: Brilinta Amount: 180 mg Route: P.O. I, the attending physician, have reviewed and verified all procedure medications. Yes, all medications given per verbal order History/Risk Factors Hypertension: Yes Dyslipidemia: No Peripheral Arterial Disease (PAD): No Myocardial Infarction (TN): No Obesity: Yes Renal Disease: No Tobacco Use: Current/Recent(w/in 1 year) Prior Interventions PCI: No CABG: No Valve Surgery: No Report Signatures Finalized by Goran Ace MD on 07/13/2022 01:54 PM
[2022-07-10 13:29] LABS: Influenza A by IFA negative (Negative); Influenza B by IFA negative (Negative); SARS Covid-2 Antigen negative (Negative)
[2022-07-10 13:35] LABS: INR 0.89 (0.8-1.2)
[2022-07-10 13:36] LABS: Partial Thromboplastin Time 33.4 SECONDS (23.9-36.7)
--- NOTE | 2022-07-10 13:36 | P.CONIM_ITS ---
Providers/Reason For Consult Consulting Physician/Specialty*: Goran Ace MD/ Cardiology Reason for Consult*: NSTEMI Requesting Physician: Dr Salazar Attending Physician: Goran Ace M.D Primary Care Provider: CONNOR Hagan History of Present Illness History of Present Illness Jim Harris III is a 42 year old male with past medical history of hypertension, diabetes who has presented with chest pain that started 2 days back. According to patient it was substernal and severe. It was on and off. Yesterday got worse and he had episode of nausea and vomiting. This morning again he had similar discomfort. His initial troponin is 213. EKG shows sinus rhythm with borderline ST elevations in the inferior leads. He has been started on non-STEMI protocol. Initial troponin is 213. His chest pain has improved significantly on medical therapy. Review of Systems Narrative: CONSTITUTIONAL: No fever chills weight loss or gain or night sweats. 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 [] MUSCULOSKELETAL: No knee or joint pain or rashes. [] Medications/Allergies Home Medications Medication Instructions Recorded Confirmed Last Taken Type lisinopril 5 mg tablet 5 mg PO DAILY 11/23/20 05/24/21 11/23/20 History lovastatin 20 mg tablet 20 mg PO DAILY 11/23/20 05/24/21 11/22/20 History metformin 500 mg tablet 500 mg PO BID 11/23/20 05/24/21 11/23/20 History glipizide 5 mg tablet 5 mg PO BID 07/10/22 07/10/22 07/09/22 History Allergies Allergy/AdvReac Type Severity Reaction Status Date / Time cruz Allergy Unknown Verified 07/10/22 11:12 Current Medications Generic Name Dose Route Start Last Admin Trade Name Freq PRN Reason Stop Dose Admin Heparin Sodium (Porcine) 0 unit 07/10/22 12:49 07/10/22 13:08 Heparin 5,000 Unit/Ml Inj 1 Ml IV 4,000 unit PRN PRN Administration Heparin weight-base protocol Protocol Heparin Sodium/Sodium Chloride 25,000 unit in 500 mls @ 0 mls/hr 07/10/22 13:00 07/10/22 13:13 Heparin Drip IV 14 unit/kg/hr .Q0M FRANKO 38.1 mls/hr Administration Protocol Per Protocol PFSH Acute PFSH: Medical History (Updated 07/10/22 @ 14:06 by Goran Ace M.D) Diabetes Hypertension Social History Smoking and tobacco status: current every day smoker Vitals/I&O/Wt Last Vital Signs Temp 98.1 F 07/10/22 11:02 Pulse 106 H 07/10/22 11:02 Resp 18 07/10/22 11:02 BP 148/97 07/10/22 11:02 Pulse Ox 99 07/10/22 11:02 O2 Del Method 07/10/22 11:02 Weight last 48 hrs Weight 300 lb Physical Exam Narrative: GENERAL: Patient is alert, awake and oriented x3. [] NECK: No jugular vein distension. [] HEENT: No cyanosis. No icterus. No pallor. [] HEART: Regular S1 and S2. No murmur, rub or gallop. [] LUNGS: Clear to auscultate bilaterally. [] CENTRAL NERVOUS SYSTEM: Grossly nonfocal. [] EXTREMITIES: Lower extremities with 1+ edema bilaterally. Pulses palpable in the lower extremities, both dorsalis pedis and posterior tibial. [] Data 07/10/22 11:30 07/10/22 11:30 A&P Assessment and plan (1) Acute non-ST elevation myocardial infarction (NSTEMI): (2) Diabetes: (3) Hypertension: Plan Patient has typical chest pain symptoms and presentation consistent with high risk non-ST elevation NV. EKG has borderline ST elevation in inferior leads not meeting STEMI criteria. We will still activate cardiac Director Data Architecture and perform coronary angiogram urgently. NPO Aspirin and plavix High intensity statin therapy Continue heparin gtt. Thank you for involving us with care of this patient. We will continue to follow. Please call with questions. Consult Attestations Medical Necessity Statement: Care expected to cross 2 midnights. Coding Level of Care Code Acute Code for [facility] Diagnoses Acute non-ST elevation myocardial infarction (NSTEMI) I21.4 Diabetes E11.9 Hypertension I10
--- NOTE | 2022-07-10 14:50 | P.HP_ITS ---
Providers/Chief Complaint Primary Care Provider: CONNOR Hagan Chief Complaint: Chest Pain and neck pains, Dizziness, N/V History of Present Illness Jim Harris III is a 42 year old male with past medical history of hypertension, diabetes who has presented with chest pain that started 2 days back.? Stating that he has been experiencing symptoms since yesterday, he is describing his chest pain as substernal, pressure-like sensation, he had similar episode this morning associate with nausea that prompted his visit to the ER, in the ER Dr. Ace was consulted with plan to take him to the Knowledge Management Advisor. He has been started on ACS protocol. Concern for ST elevation inferior leads, troponin 213, chest pain improved with medical therapy. Review of Systems Const: Denies: fever(s) Eyes: Denies: change in vision ENMT: Denies: throat pain Card: Reports: chest pain Resp: Reports: dyspnea GI: Reports: nausea : Denies: flank pain Musc: Denies: neck pain Skin/Breast: Denies: rash Neuro: Denies: headache(s) Psych: Denies: anxiety Endo: Denies: polyuria Deonte/Lymph: Denies: easy bruising All/Imm: Denies: urticaria Medications/Allergies Home Medications Medication Instructions Recorded Confirmed Last Taken Type metformin 500 mg tablet 500 mg PO BID 11/23/20 07/10/22 07/09/22 History glipizide 5 mg tablet 5 mg PO BID 07/10/22 07/10/22 07/09/22 History aspirin 81 mg tablet,delayed 81 mg PO DAILY 30 days #30 tabs 07/11/22 Unknown Rx release atorvastatin 40 mg tablet 80 mg PO DAILY 30 days #60 tabs 07/11/22 Unknown Rx lisinopril 20 mg tablet 20 mg PO DAILY 30 days #30 tabs 07/11/22 Unknown Rx metoprolol succinate 25 mg 50 mg PO DAILY 30 days #60 tabs 07/11/22 Unknown Rx tablet,extended release 24 hr ticagrelor 90 mg tablet (Brilinta) 90 mg PO BID 30 days #60 tabs 07/11/22 Unknown Rx Allergies Allergy/AdvReac Type Severity Reaction Status Date / Time cruz Allergy Unknown Verified 07/10/22 11:12 PFSH Acute PFSH: Medical History (Updated 07/10/22 @ 14:06 by Goran Ace M.D) Diabetes Hypertension Social History Smoking and tobacco status: current every day smoker Vitals/I&O/Wt Last Vital Signs Temp 98.1 F 07/10/22 11:02 Pulse 106 H 07/10/22 11:02 Resp 18 07/10/22 11:02 BP 148/97 07/10/22 11:02 Pulse Ox 99 07/10/22 11:02 O2 Del Method 07/10/22 11:02 Weight last 48 hrs Weight 136.078 kg Physical Exam Narrative: Appears stated age Chest pain. Hemodynamically stable S1, S2 Abdomen soft Doing well on room air Nonfocal neuro exam Pleasant and cooperative Data 07/10/22 11:30 07/10/22 11:30 A&P Assessment and plan (1) Hypertension: (2) Acute non-ST elevation myocardial infarction (NSTEMI): (3) Diabetes: Plan NSTEMI Start ACS protocol Patient is going to the Knowledge Management Advisor First troponin 2 low 13 Typical unstable angina Positive family history Check D-dimer Check A1c lipid profile Cardiac diet after angiogram Full code With Mcdanielata received 2 stents 1 in RCA and another 1 in PDA, chest pain-free, Lovenox/heparin discontinued, Attestations Medical Necessity Statement*: Anticipating more than 2 midnights Time Spent in Patient Care: 40 Coding Level of Care Code Acute Code for [facility] Fwd Diagnoses Hypertension I10 Acute non-ST elevation myocardial infarction (NSTEMI) I21.4 Diabetes E11.9
--- NOTE | 2022-07-10 16:30 | PC.NURSE ---
received from cardiac labor relations teacher at 1520 via w/c,into room 112-2.report received.pt is alert and oriented x 4.denies pain at present.sr on monitor.right wrist with radial tr band on and inflated.no hematoma noted.right hand is warm to touch and with brisk capillary refill.palpable radial pulse noted distal to tr band.pt instructed in activity restrictions s/p radial artery procedure...and instructed to notify staff for any bleeding,pain,numbness,sob... or for any concerns at all.pt verb understanding of instructions.
[2022-07-10 16:52] LABS: Glucose Point of Care 163 mg/dL (70-110)
[2022-07-10] MEDS: insulin lispro 100 unit/1 mL SUBCUT (16:56)
--- NOTE | 2022-07-10 17:16 | ECG_ITS ---
[facility] Test Date: 2022-07-10 Pat Name: Jim Harris Department: Room: 112 Gender: Male Energy Professional: : 1980 Requested By: Shubham Salazar Order Number: [id number] Hutson MD: Goran Ace M.D. Measurements Intervals [place] Rate: 91 P: 64 AR: 198 QRS: -68 QRSD: 99 T: 26 QT: 343 QTc: 423 Interpretive Statements SINUS RHYTHM POSSIBLE RIGHT ATRIAL ENLARGEMENT [0.25mV P-WAVE] PATTERN CONSISTENT WITH PULMONARY DISEASE MINIMAL VOLTAGE CRITERIA FOR LVH, CONSIDER NORMAL VARIANT [MEETS CRITERIA IN ONE OF: R(aVL), S(V1), R(V5), R(V5/V6)+S(V1)] INFERIOR MYOCARDIAL INFARCTION , POSSIBLY ACUTE [40+ ms Q WAVE AND/OR ST/T ABNORMALITY IN II/aVF] ACUTE NC Compared to ECG 07/10/2022 13:36:17 Incomplete right bundle-branch block no longer present Myocardial infarct finding still present Electronically Signed On 07-10-2022 21:43:01 BALLROOM DANCE INSTRUCTOR by Goran Ace M.D. [id number]
[2022-07-10 18:12] LABS: D Dimer 0.52 ug/mIFEU (0-0.59)
[2022-07-10 18:36] LABS: Troponin 5 6HR 3115 ng/L (0-15); Troponin 5 6HR Delta 2902 ng/L (0-12)
[2022-07-10 18:41] LABS: Chol HDL Ratio 5.39 mg/dL (1.0-5.00); Cholesterol 167 mg/dL (0-200); HDL Cholesterol 31 mg/dL (60-100); LDL Cholesterol Calculated 86 mg/dL (50-129); LDL HDL Ratio 2.77 RATIO (0.00-3.22); Triglycerides 250 mg/dL (0-150)
[2022-07-10] MEDS: metoprolol succinate ER (24 HR) 25 mg Tablet 50 MG PO (20:33)
[2022-07-10 20:48] LABS: Glucose Point of Care 172 mg/dL (70-110)
[2022-07-10] MEDS: hyDRALAzine 20 mg/mL INJ 1 mL 10 MG IVP (21:32)
[2022-07-10 22:29] LABS: Estmated Average Glucose 169; Hemoglobin A1C 7.5 % (4.0-6.0)
[2022-07-11 03:00] VITALS: BP 141/77; PULSE 90; O2SAT 96
[2022-07-11 04:30] LABS: Basophils # 0.1 10^3/uL (0.0-0.1); Basophils % 0.7 %; Eosinophils # 0.3 10^3/uL (0.0-0.8); Eosinophils % 2.2 %; Hemoglobin 15.8 g/dL (11.7-16.6); Lymphocytes # 3.1 10^3/uL (0.8-4.8); Lymphocytes % 25.3 %; Mean Corpuscular HGB Conc 33.6 g/dL (30.0-36.0); Mean Corpuscular Hemoglobin 29.9 pg (28.0-34.0); Mean Corpuscular Volume 88.8 fl (80-94); Mean Platelet Volume 10.1 fL (7.4-10.4); Monocytes # 1.2 10^3/uL (0.2-0.9); Monocytes % 10.2 %; Neutrophils # 7.41 10^3/uL (1.8-7.7); Neutrophils % 61.2 %; Nucleated Red Blood Cells % 0 %; Platelet Count 286 10^3/cmm (130-400); Red Blood Count 5.29 10^6/uL (4.1-5.3); White Blood Count 12.1 10^3/uL (4.0-10.0)
[2022-07-11 05:02] LABS: Blood Urea Nitrogen 6 mg/dL (6-20); C Reactive Protein 5.6 mg/L (0.0-4.9); Calcium 9.1 mg/dL (8.5-10.5); Carbon Dioxide 20 mmol/L (22-29); Chloride 99 mmol/L (98-107); Glomerular Filtration Rate 182.3 mL/min (90-130); Glucose 145 mg/dL (65-115); Magnesium 1.7 mg/dL (1.7-2.3); Osmolality Calculated 280 mOsm/kg (285-295); Sodium 135 mmol/L (136-145)
[2022-07-11 05:43] VITALS: PULSE 78
--- NOTE | 2022-07-11 06:00 | USCV_ITS ---
Jim Harris Age: 42 Gender: M : 1980 Exam Date: 07/11/2022 06:26 Ordering Phys: Goran Ace M.D ([email or web address]) Technologist: Carlos Enrique Mccoy [place]am [place] [facility] [place]: nstimi BP: 155 / 89 HR: 82 Rhythm: Sinus Technical Quality: Adequate MEASUREMENTS (Male / Female) Normal Values 2D ECHO LV Diastolic Diameter PLAX 3.5 cm 4.2 - 5.9 / 3.9 - 5.3 cm LV Systolic Diameter PLAX 2.3 cm IVS Diastolic Thickness 1.1 cm 0.6 - 1.0 / 0.6 - 0.9 cm IVS Systolic Thickness 1.5 cm LVPW Diastolic Thickness 0.9 cm 0.6 - 1.0 / 0.6 - 0.9 cm LVPW Systolic Thickness 1.2 cm LVOT Diameter 2.0 cm LV Ejection Fraction 2D Teich 67.1 % LV Ejection Fraction MOD 2C 80.7 % LV Ejection Fraction 2C AL 80.4 % LA Diameter 3.4 cm Aorta at Sinotubular Diameter 3.0 cm M-MODE Aortic Annulus Diameter 3.8 cm LA Ao Ratio MM 1.1 MV E Point Septal Separation 0.9 cm DOPPLER AV Peak Velocity 125.0 cm/s LVOT Peak Velocity 118.0 cm/s AV Area Cont Eq vti 3.0 cm squared AV Area Cont Eq pk 3.1 cm squared MV Area PHT 5.0 cm squared Mitral E to A Ratio 1.0 MV E' Velocity 40.0 cm/s Mitral E to MV E' Ratio 6.4 Mitral E to LV E' Lateral Ratio 6.0 Mitral E to LV E' Septal Ratio 6.8 TR Peak Velocity 103.7 cm/s TR Peak Gradient 4.3 mmHg TV Peak E Velocity 77.0 cm/s Right Atrial Pressure 3.0 mmHg Pulmonary Artery Systolic Pressu 7.3 mmHg RV Acceleration Time 0.2 s FINDINGS Left Ventricle Left ventricle is normal in size. LV systolic function is normal with EF 55 to 60%. Mild hypokinesis of inferior and inferolateral pedersen are seen. Diastolic function is normal Right Ventricle Grossly normal Right Atrium Not well visualized Left Atrium Not well visualized Mitral Valve Grossly normal. Trace mitral regurgitation. Aortic Valve Grossly normal aortic valve. No significant stenosis or regurgitation. Tricuspid Valve Mild tricuspid regurgitation. Insufficient TR jet to calculate RVSP Pulmonic Valve Not well visualized Pericardium Normal Aorta Normal in size IVC Not well visualized CONCLUSIONS Technically limited quality echocardiogram because of poor ultrasonic windows. LV systolic function is normal with EF 55 to 60%. Above-mentioned regional wall motion abnormalities are seen Diastolic function is normal. Trace mitral regurgitation. Mild tricuspid regurgitation. No comparison studies are available. Goran Ace MD (Electronically Signed) Final Date: 11 July 2022 10:30 S
[2022-07-11 06:31] LABS: Glucose Point of Care 156 mg/dL (70-110)
[2022-07-11] MEDS: perflutren protein-a microsphr 0.22 mg/mL SDV 3 mL IV (06:50)
[2022-07-11 08:00] VITALS: O2SAT 96
--- NOTE | 2022-07-11 08:34 | P.PN_ITS ---
Subjective Subjective: Patient had coronary angiogram yesterday that showed severe stenosis of distal RCA and totally occluded PDA. He underwent successful revascularization with LOR x 2. Echo shows normal LV systolic function Vitals/I&O/Wt Last Vital Signs Temp 98.1 F 07/10/22 11:02 Pulse 78 07/11/22 05:43 Resp 20 H 07/10/22 21:45 BP 141/77 07/11/22 03:00 Pulse Ox 96 07/11/22 08:00 O2 Del Method 07/11/22 08:00 07/10/22 07/11/22 07/11/22 22:59 06:59 14:59 Intake Total 600 / 600 240 / 840 Output Total 1180 / 1180 760 / 1940 Balance -580 / -580 -520 / -1100 Weight last 48 hrs Weight 298 lb 6 oz Weight 300 lb Physical Exam Narrative: GENERAL: Patient is alert, awake and oriented x3. [] NECK: No jugular vein distension. [] HEENT: No cyanosis. No icterus. No pallor. [] HEART: Regular S1 and S2. No murmur, rub or gallop. [] LUNGS: Clear to auscultate bilaterally. [] CENTRAL NERVOUS SYSTEM: Grossly nonfocal. [] EXTREMITIES: Lower extremities with 1+ edema bilaterally. Pulses palpable in the lower extremities, both dorsalis pedis and posterior tibial. [] Data 07/11/22 03:04 07/11/22 03:04 A&P Assessment and plan (1) Acute non-ST elevation myocardial infarction (NSTEMI): (2) Diabetes: (3) Hypertension: Plan Patient underwent successful revascularization of RCA and PDA with DESX2 yesterday. ECHO shows normal LV systolic function Aspirin and Brilinta loaded yesterday. We will continue. High intensity statin therapy Metoprolol 50mg BID. We have also uptitrated lisinopril to 20mg daily. Strict diabetes control. Thank you for involving us with care of this patient. Patient is stable to be discharged from cardiology standpoint. Outpatient followup at cardiology office. Please call with questions. Attestations Medical Necessity Statement*: Care not expected to cross 2 midnights. Coding Level of Care Code Acute Code for [facility] Diagnoses Acute non-ST elevation myocardial infarction (NSTEMI) I21.4 Diabetes E11.9 Hypertension I10
--- NOTE | 2022-07-11 09:44 | P.DS_ITS ---
Discharge Providers Date of Admission: 07/10/22 15:45 Date of Discharge: July 11, 2022 Attending Provider at Admission: Goran Ace M.D Attending Provider at Discharge: Adela Davis MD Primary Care Provider: CONNOR Hagan Diagnoses at Discharge Discharge Diagnosis (1) Hypertension: Status: Acute (2) Acute non-ST elevation myocardial infarction (NSTEMI): Status: Acute (3) Diabetes: Status: Acute Reason for Visit Reason for Visit: Chest Pain and neck pains, Dizziness, N/V Brief History: Jim Harris III is a 42 year old male with past medical history of hypertension, diabetes who has presented with chest pain that started 2 days back.? Stating that he has been experiencing symptoms since yesterday, he is describing his chest pain as substernal, pressure-like sensation, he had similar episode this morning associate with nausea that prompted his visit to the ER, in the ER Dr. Ace was consulted with plan to take him to the Traffic Recorder.? He has been started on ACS protocol.? Concern for ST elevation inferior leads, troponin 213, chest pain improved with medical therapy. Hospital Course Hospital Course Patient presented with chest pain that started on Monday. He says he mainly ignored it and it worsened on Monday evening the vomiting as well and then through Monday night due to worsening and suspicion that he had a heart attack patient presented to the hospital. Patient states his grandfather of a heart attack in his dad of COVID however did have issues with hypertension. Otherwise does not have any other family history in regards to this. Has not had a prior SC before. On arrival his delta troponin was 2000 and he was immediately taken to the Traffic Recorder. It was non-ST elevation SC. He received 2 stents to the RCA. Right wrist approach was used. Patient will be started on aspirin Brilinta, lisinopril, atorvastatin, Toprol at discharge. We will giving pt coupon for Brilinta as well. Will be calling [facility] pharmacy to confirm that patient's coupon will be honoured. I have spoken to the nurse and the case therapist. Patient to be discharged home in stable condition. He is to follow-up with cardiology as an outpatient and his primary care doctor. Patient was heavily counseled by myself not to miss any doses of his medications as there is a high chance of in-stent restenosis if not taking as advised. Patient demonstrated understanding will be discharged home today. Physical Exam Narrative: General: Alert oriented x3, patient seen getting up in bed appearing comfortable. HEENT: Normocephalic, atraumatic, EOMI, breathing normally on room air. Cardio: Regular rate rhythm, normal S1-S2, Respiratory: Clear to auscultation bilaterally no wheezes no rhonchi. GI: Abdomen soft, nontender, nondistended, bowel sounds + Behavior: Appropriate and cooperative Extremities: no edema, no cyanosis, right wrist unremarkable. Covered with Band-Aid. No evidence of fluctuance. Capillary refill less than 2 seconds. Discharge Data Studies Completed and Pending Completed Studies During Hospitalization Category Date Time Status XR chest 1V portable [id number] Stat Exams 07/10/22 11:20 Completed Pending at discharge Category Date Time Status CIGAR PATCHER request for service Routine Exams 07/10/22 13:24 Taken CV. echo wo/w contrast [id number] Routine Ultrasound 07/11/22 06:00 Taken Radiology Impressions Chest X-Ray 07/10/22 11:20 IMPRESSION: No acute findings. Laboratory Results WBC 12.1 10^3/uL (4.0-10.0) H 07/11/22 03:04 RBC 5.29 10^6/uL (4.1-5.3) 07/11/22 03:04 Hgb 15.8 g/dL (11.7-16.6) 07/11/22 03:04 Hct 47.0 % (42.0-52.0) 07/11/22 03:04 MCV 88.8 fl (80-94) 07/11/22 03:04 MCH 29.9 pg (28.0-34.0) 07/11/22 03:04 MCHC 33.6 g/dL (30.0-36.0) 07/11/22 03:04 RDW 13.0 % (12.1-15.1) 07/11/22 03:04 Plt Count 286 10^3/cmm (130-400) 07/11/22 03:04 MPV 10.1 fL (7.4-10.4) 07/11/22 03:04 Neut % (Auto) 61.2 % 07/11/22 03:04 Lymph % (Auto) 25.3 % 07/11/22 03:04 [place] % (Auto) 10.2 % 07/11/22 03:04 Eos % (Auto) 2.2 % 07/11/22 03:04 Baso % (Auto) 0.7 % 07/11/22 03:04 Neut # (Auto) 7.41 10^3/uL (1.8-7.7) 07/11/22 03:04 Lymph # (Auto) 3.1 10^3/uL (0.8-4.8) 07/11/22 03:04 [place] # (Auto) 1.2 10^3/uL (0.2-0.9) H 07/11/22 03:04 Eos # (Auto) 0.3 10^3/uL (0.0-0.8) 07/11/22 03:04 Baso # (Auto) 0.1 10^3/uL (0.0-0.1) 07/11/22 03:04 Nucleated RBC % (auto) 0 % 07/11/22 03:04 Nucleated RBCs # 0.0 /100WBC 07/11/22 03:04 PT 12.40 SECONDS (12.1-14.9) 07/10/22 11:30 INR 0.89 (0.8-1.2) 07/10/22 11:30 APTT 33.4 SECONDS (23.9-36.7) 07/10/22 11:30 D-Dimer 0.52 ug/mIFEU (0-0.59) 07/10/22 17:24 Sodium 135 mmol/L (136-145) L 07/11/22 03:04 Potassium 4.0 mmol/L (3.5-5.1) 07/11/22 03:04 Chloride 99 mmol/L (98-107) 07/11/22 03:04 Carbon Dioxide 20 mmol/L (22-29) L 07/11/22 03:04 Anion Gap 20.0 (5-19) H 07/11/22 03:04 BUN 6 mg/dL (6-20) 07/11/22 03:04 Creatinine 0.5 mg/dL (0.7-1.2) L 07/11/22 03:04 GFR Calculation 182.3 mL/min (90-130) H 07/11/22 03:04 Glucose 145 mg/dL (65-115) H 07/11/22 03:04 POC Glucose 156 mg/dL (70-110) H 07/11/22 06:28 Estimat Average Glucose 169 07/10/22 17:24 Hemoglobin A1c 7.5 % (4.0-6.0) H 07/10/22 17:24 Calculated Osmolality 280 mOsm/kg (285-295) L 07/11/22 03:04 Calcium 9.1 mg/dL (8.5-10.5) 07/11/22 03:04 Magnesium 1.7 mg/dL (1.7-2.3) 07/11/22 03:04 Total Bilirubin 0.3 mg/dL (0.15-1.2) 07/10/22 11:30 AST 37 U/L (0-40) 07/10/22 11:30 ALT 36 U/L (0-41) 07/10/22 11:30 Alkaline Phosphatase 61 U/L (40-130) 07/10/22 11:30 Troponin T Baseline 213 ng/L (0-15) H* 07/10/22 11:30 Troponin T Hi Sens 6Hr 3115 ng/L (0-15) H 07/10/22 17:24 Troponin T Hi Sens 6Hr Delta 2902 ng/L (0-12) H* 07/10/22 17:24 C-Reactive Protein 5.6 mg/L (0.0-4.9) H 07/11/22 03:04 NT-Pro-B Natriuret Pep 128 pg/mL (0-125) H 07/10/22 11:30 Total Protein 7.7 g/dL (6.6-8.7) 07/10/22 11:30 Albumin 4.4 g/dL (3.5-5.2) 07/10/22 11:30 Globulin 3.3 g/dL (1.3-4.6) 07/10/22 11:30 Triglycerides 250 mg/dL (0-150) H 07/10/22 17:24 Cholesterol 167 mg/dL (0-200) 07/10/22 17:24 LDL Cholesterol, Calc 86 mg/dL (50-129) 07/10/22 17:24 HDL Cholesterol 31 mg/dL (60-100) L 07/10/22 17:24 LDL/HDL Ratio 2.77 RATIO (0.00-3.22) 07/10/22 17:24 Cholesterol/HDL Ratio 5.39 mg/dL (1.0-5.00) H 07/10/22 17:24 Lipase 22 U/L (13-60) 07/10/22 11:30 Influenza Type A Ag negative (Negative) 07/10/22 11:49 Influenza Type B Ag negative (Negative) 07/10/22 11:49 SARS-CoV-2 Ag (Rapid) negative (Negative) 07/10/22 11:49 Vitals Last Vital Signs Temp 98.1 F 07/10/22 11:02 Pulse 78 07/11/22 05:43 Resp 20 H 07/10/22 21:45 BP 141/77 07/11/22 03:00 Pulse Ox 96 07/11/22 08:00 O2 Del Method 07/11/22 08:00 Discharge Plan Discharge Patient Disposition: Home Condition: Stable Prescriptions: New atorvastatin 40 mg Tablet 80 mg PO DAILY 30 Days Qty: 60 0RF lisinopril 20 mg Tablet 20 mg PO DAILY 30 Days Qty: 30 0RF aspirin 81 mg Tablet,Delayed Release (Dr/Ec) 81 mg PO DAILY 30 Days Qty: 30 0RF metoprolol succinate 25 mg Tablet Extended Release 24 Hr 50 mg PO DAILY 30 Days Qty: 60 0RF Brilinta 90 mg Tablet 90 mg PO BID 30 Days Qty: 60 0RF Continued glipizide 5 mg Tablet 5 mg PO BID Held metformin 500 mg tablet 500 mg PO BID Hold Instructions: restart in 48 hours Discontinued lisinopril 5 mg tablet 5 mg PO DAILY lovastatin 20 mg tablet 20 mg PO DAILY Discharge Orders: Discharge Order (Routine); Ordered 07/11/22 Ordered By: Adela Davis Referrals: Emma nAtonio FNP [Primary Care Provider] - 07/15/22 9:45 am ([facility] has schduled you a follow-up appointment with Dr. Antonio on 07/15/22 at 9:45. If you have any questions, please call [phone].) Goran Ace M.D [Physician] - 1 month Samantha Spencer FNP [Nurse Practitioner] - 7-10 days (Please follow-up with Samantha Spencer on at 9:5A.M. If you have any questions or need to reschedule. Please call ) Discharge Diet: Cardiac Discharge Activity: Increase activity as tolerated Patient Instructions: Aspirin/Codeine (By mouth), Metoprolol (By mouth) (Lopressor, Toprol XL), Lisinopril (By mouth) (Prinivil, Zestril), Atorvastatin (By mouth) (Lipitor), Ticagrelor (By mouth) (Brilinta), Coronary Angioplasty (DC), Chronic Hypertension (DC), Opioid Safety, Post Angiogram Home Care Instructions Activity Restrictions/Additional Instructions: Please return to the ER if you have any worsening of symptoms or development of new symptoms. Do call back the hospital right away if you are unable to get your prescription for Brilinta. We will be giving you a coupon today and RN is calling [facility] to confirm that you will be able to get your medication. It is really important you take your medication as advised and you cannot miss even a single dose as discussed today in the room. Discharge Attestations Time Spent in Discharge Care*: greater than 30 min Quality Metrics Clinical Quality Measures [ No reported AMI, CVA or VTE this stay] Coding Level of Care Code Acute Chg FW DC note Diagnoses Hypertension I10 Acute non-ST elevation myocardial infarction (NSTEMI) I21.4 Diabetes E11.9
[2022-07-11] MEDS: metoprolol succinate ER (24 HR) 25 mg Tablet 50 MG PO (09:52)
[2022-07-11] MEDS: lisinopril 20 mg Tablet PO (09:52)
[2022-07-11] MEDS: atorvastatin 40 mg Tablet 80 MG PO (09:52)
[2022-07-11] MEDS: aspirin 81 mg EC Tablet PO (09:52)
[2022-07-11] MEDS: ticagrelor 90 mg Tablet PO (09:52)
[2022-07-11] MEDS: insulin lispro 100 unit/1 mL SUBCUT (09:53)
--- NOTE | 2022-07-11 09:58 | PC.CHAP ---
Pastoral Care Encounter/Spiritual Assessment Type of Contact [] Declined lending advisor visit [] Patient/Family/Request visit [] Outpatient visit [] Follow-up visit [] Physician referral [] Code/Alert [x] Routine visit [] Staff referral [] Actively dying [] Patient sleeping [x] Family support [] [] Out of room [] Palliative care [] [] Receiving care in room [] Pre-surgical visit [] Trauma [] Long length of stay [] ICU visit [] Other: Relational/Emotional Strength [x] Patient feels connected with others/family/visitors/staff [] Distress [] Loneliness/isolation [] Abandonment Spirituality of Patient [x] Person of Milly [] Attends Latter-Day of their Milly [x] Believes in Prayer [] Reads Bible or Caodaism materials [] There are Spiritual issues to be addressed Content Manager Interventions [x] Prayer [x] Active listening [] Non-anxious presence [x] Spiritual/emotional support [] Crisis/trauma care [] Spiritual counseling [] Bereavement support [] Provided bereavement packet [] Provided Bible/devotional materials [] Provided toy/stuffed animal, coloring book to patient or family member [] Provided Communion [] Anointing/[place] [] Salvation [] Completed spiritual assessment [] Other: Impact on Illness or Injury [] Angry [] Fearful [] Anxious [] Often cries [] Exhaustion [] Unable to work [] Unable to attend temple [] Unable to walk/stand [] Unable to read [] Unable to drive [] Unable to eat/drink [] Unable to sleep [] Unable to be with family [] Patient intubated [] Other: Summary Time spent with patient 15 min
[2022-07-11 10:18] VITALS: BP 111/65; PULSE 80; RESP 18; O2SAT 96
--- NOTE | 2022-07-11 10:50 | PC.NURSE ---
called [facility] pharmacy to do a meds to bed for this pt discharge meds. A coupon for [facility] provided.
--- NOTE | 2022-07-11 13:15 | PC.NURSE ---
Pt discharged home. Pts IV removed no redness or swelling noted. Pts discharge instructions given along with prescriptions and follow up appointments. Pt had no c/o pain or discomfort at the time of discharge.
== END 2022-07-11 13:15 | disposition home or self-care (01) | DRG 247 ==
LOC: ER 12:59 → CCL 13:22 → CSU 07-11 00:10
PROVIDERS: Internal Medicine; Admitting Provider Internal Medicine; Emergency Provider Emergency Medicine; PCP Nurse Practitioner Family; Visit Provider Internal Medicine
PROC: 027135Z Dilation of Coronary Artery, Two Arteries with Two Drug-eluting Intraluminal Devices, Percutaneous Approach (ICD-10-PCS; principal; 2022-07-10 14:00)
PROC: 027135Z Dilation of Coronary Artery, Two Arteries with Two Drug-eluting Intraluminal Devices, Percutaneous Approach (ICD-10-PCS; 2022-07-10 14:00)
DX: I21.4 Non-ST elevation (NSTEMI) myocardial infarction (principal); I10 Essential (primary) hypertension; E11.9 Type 2 diabetes mellitus without complications; F17.200 Nicotine dependence, unspecified, uncomplicated; I25.10 Atherosclerotic heart disease of native coronary artery without angina pectoris
CPT/HCPCS: 36415; 36416; 71045; 80048; 80053; 80061; 82962; 83036; 83690; 83735; 83880; 84484; 85025; 85347; 85378; 85610; 85730; 86140; 87426; 87804; 92978; 93005; 93458; 96367; 96372; 96374; 99152; 99153; 99285; C1725; C1753; C1769; C1874; C1887; C1894; C8929; C9600; J0360; J1644; J1815; J2250; J3010; J3490; J7030; J7040; Q9956; Q9967

== ENCOUNTER → 2022-07-26 10:20 | Outpatient (BNVA) | payer SELFPAY | PROVIDERS: PCP Nurse Practitioner Family; Visit Provider Nurse Practitioner Family | DX: I25.10 Atherosclerotic heart disease of native coronary artery without angina pectoris (principal) | CPT/HCPCS: 36415; 80048 ==